=== PATIENT | female | born 1950 | race Caucasian/White ===

== ENCOUNTER → 2016-06-26 | Outpatient (CLI) | payer OTHER | END | disposition home or self-care (01) | DX: M17.11 Unilateral primary osteoarthritis, right knee (principal); R26.2 Difficulty in walking, not elsewhere classified; M62.81 Muscle weakness (generalized); M25.661 Stiffness of right knee, not elsewhere classified | CPT/HCPCS: 97110 GP; 97150 GO; 97161 GP; 97165 GO; G8978 GP; G8979 GP; G8980 GP; G8987 GO; G8988 GO; G8989 GO ==

== ENCOUNTER 2016-07-09 08:25 | Inpatient (IN) | payer OTHER ==
[~2016-07-09] VITALS: Ht 174 cm; Wt 89.4 kg
[~2016-07-09 08:25] MED LIST: ALDACTONE25 MG PO; ASCORBIC ACID100 MG PO; CALCIUM 500 MG1 EACH PO; CRESTOR10 MG PO; DIOVAN160 MG PO; ERGOCALCIF50000 UNIT PO; ESSENTIAL WOMA1 EAC1 PO; HYDROCHLOROTHIA25 MG PO; IRON325 MG PO; LEXAPRO5 MG PO; SYNTHROID137 MCG PO; TEKTURNA150 MG PO
[2016-07-09 10:00] VITALS: BP 107/65
[2016-07-09 14:14] LABS: MCV 93.9 FL (83-99); MEAN PLAT.VOLUME 10.3 uM^3 (9.5-12.4); PLATELET COUNT 199 K/uL (156-360); RBC DIS.WIDTH-CV 11.7 % (11.8-14.6); RBC DIS.WIDTH-SD 40.3 % (39-53); RED BLOOD COUNT 3.94 M/uL (3.80-5.20)
[2016-07-09 14:19] LABS: WHITE BLOOD COUNT 5.5 K/uL (4.1-10.2)
[2016-07-09 15:02] VITALS: BP 116/67
[2016-07-09 20:06] VITALS: BP 121/77
[2016-07-09 23:49] VITALS: BP 107/69
[2016-07-10 03:58] VITALS: BP 125/70
[2016-07-10 05:41] LABS: HEMATOCRIT 36.3 % (36.0-46.0); MCV 92.4 FL (83-99)
[2016-07-10 05:54] LABS: ANION GAP 9 MEQ/L (2-14); CHLORIDE 105 MEQ/L (99-109); GFR ESTIMATE (CALCULATED) > 59 mL/min/; GLUCOSE 139 mg/dL (70-99); POTASSIUM 4.7 MEQ/L (3.7-5.4); SAMPLE HEMOLYSIS CHECK 0; SAMPLE ICTERIC CHECK 0; SAMPLE LIPEMIA CHECK 0; SODIUM 139 MEQ/L (136-147); UREA NITROGEN (BUN) 15 mg/dL (9-23)
[2016-07-10 08:00] VITALS: BP 108/62
[2016-07-10] MEDS ORDERED: CELECOXIB200 MG PO (10:55)
[2016-07-10] MEDS ORDERED: ENDOCET 5-3251 EACH PO (10:55)
[2016-07-10] MEDS ORDERED: LOVENOX40 MG/0.4 SC (10:55)
[2016-07-10 11:37] VITALS: BP 113/62
[2016-07-10 16:01] VITALS: BP 92/58
[2016-07-10 20:26] VITALS: BP 100/64
[2016-07-11] VITALS: BP 103/63
[2016-07-11 04:00] VITALS: BP 123/72
[2016-07-11 05:36] LABS: HEMATOCRIT 33.4 % (36.0-46.0); MCV 94.1 FL (83-99)
[2016-07-11 08:03] VITALS: BP 99/55
[2016-07-11] MEDS ORDERED: OXYCONTIN10 MG PO (10:43)
[2016-07-11 11:07] VITALS: BP 90/55
== END 2016-07-11 15:18 | DRG 470 ==
LOC: 2SOUTH 08:25 → 3WEST 09:00 → 2SOUTH 12:05 → 3WEST 14:42 → 2SOUTH 15:36 → 3WEST 07-11 15:18
PROVIDERS: Orthopaedic Surgery
PROC: 0SRC0J9 Replacement of Right Knee Joint with Synthetic Substitute, Cemented, Open Approach (ICD-10-PCS; principal; 2016-07-09)
DX: M17.11 Unilateral primary osteoarthritis, right knee (principal); F33.9 Major depressive disorder, recurrent, unspecified; I10 Essential (primary) hypertension; E03.9 Hypothyroidism, unspecified; E78.5 Hyperlipidemia, unspecified; F41.9 Anxiety disorder, unspecified
CPT/HCPCS: 73560; 80048; 85014; 85018; 85027; J0690; J1100; J1170; J1650; J2250; J2405; J7050